=== PATIENT | female | born 1985 | race African-American/Black ===

== ENCOUNTER 2017-09-18 09:07 | Emergency (ER) | payer OTHER, BC ==
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
[2017-09-18] MEDS ORDERED: IBUPROFEN 800 MG TABLET PO ONE (12:57)
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
[2017-09-18 13:29] VITALS: BP 117/72
== END 2017-09-18 13:25 | disposition home or self-care (01) ==
LOC: ER 09:07
DX: M25.511 Pain in right shoulder (principal); M54.2 Cervicalgia; M54.6 Pain in thoracic spine; V49.60XA Unspecified car occupant injured in collision with unspecified motor vehicles in traffic accident, initial encounter
CPT/HCPCS: 99284; 73030; 72070; 70450; 72125; L0120

== ENCOUNTER 2019-04-01 20:53 | Inpatient (IN) | payer MEDICAID ==
[2019-04-01 21:39] LABS: APPEARANCE,URINE CLOUDY; BILIRUBIN,URINE NEGATIVE (NEGATIVE); COLOR,URINE YELLOW; GLUCOSE, URINE NEGATIVE (NEGATIVE); KETONES,URINE NEGATIVE (NEGATIVE); LEUKOCYTE ESTERASE,URINE NEGATIVE (NEGATIVE); NITRITE,URINE NEGATIVE (NEGATIVE); PROTEIN,URINE NEGATIVE (NEGATIVE); URINE SPECIFIC GRAVITY 1.024
[2019-04-01 21:58] LABS: ABSOLUTE LYMPHOCYTES (AUTO) 1.9 10^3/uL (0.5-4.7); ABSOLUTE MONOCYTES (AUTO) 0.8 10^3/uL (0.1-1.4); ABSOLUTE NEUT (AUTO) 4.4 10^3/uL (1.7-8.2); BASOPHILS % (AUTO) 0.4 % (0-2); EOSINOPHILS % (AUTO) 0.3 % (0-6); HEMOGLOBIN 11.4 g/dL (12.0-15.5); LYMPHOCYTES % (AUTO) 26.2 % (13-45); MEAN CORPUSCULAR HEMOGLOBIN 27.2 pg (27.0-33.4); MEAN CORPUSCULAR HGB CONC 33.5 g/dL (32.0-36.0); MEAN CORPUSCULAR VOLUME 81 fl (80-97); MONOCYTES % (AUTO) 11.4 % (3-13); PLATELET COUNT 225 10^3/uL (150-450); RED BLOOD COUNT 4.19 10^6/uL (3.72-5.28); RED CELL DISTRIBUTION WIDTH 16.3 % (11.5-14.0); SEGMENTED NEUTROPHILS % (AUTO) 61.7 % (42-78); TOTAL CELLS COUNTED % (AUTO) 100 %; WHITE BLOOD COUNT 7.1 10^3/uL (4.0-10.5)
[2019-04-01 21:59] LABS: URINE AMPHETAMINES SCREEN NEGATIVE; URINE BARBITURATES SCREEN NEGATIVE; URINE BENZODIAZEPINES SCREEN NEGATIVE; URINE COCAINE SCREEN NEGATIVE; URINE MARIJUANA (THC) SCREEN NEGATIVE; URINE METHADONE SCREEN NEGATIVE; URINE PHENCYCLIDINE SCREEN NEGATIVE
[2019-04-01] MEDS ORDERED: FENTANYL/BUPIVACAINE/NS/PF 300 MCG/150 ML RTUINJ EPI ONE (22:04)
[2019-04-01] MEDS ORDERED: BUPIVACAINE HCL 0.25 % INJ/PF (2.5 MG/1 ML) 30 ML VIAL ONE (22:04)
[2019-04-01] MEDS ORDERED: EPHEDRINE SULFATE INJ 50 MG/1 ML AMPULE ONE (22:04)
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
[2019-04-01] MEDS ORDERED: BENZOCAINE/MENTHOL AEROSOL SPRAY 56 ML TOP PRN (23:59)
[2019-04-01] MEDS ORDERED: GLYCERIN/WITCH HAZEL LEAF 1 EACH MED..WIPE TP PRN (23:59)
[2019-04-01] MEDS ORDERED: ACETAMINOPHEN WITH CODEINE #3 TABLET PO PRN (23:59)
[2019-04-01] MEDS ORDERED: PROMETHAZINE HCL 25 MG TABLET PO PRN (23:59)
[2019-04-01] MEDS ORDERED: ACETAMINOPHEN 650 MG SUPP.RECT PR PRN (23:59)
[2019-04-01] MEDS ORDERED: MAGNESIUM HYDROXIDE SUSP 30 ML UDCUP PO PRN (23:59)
[2019-04-01] MEDS ORDERED: MEASLES,MUMPS&RUBELLA VACC/PF 0.5 ML VIAL SUBCUT PRN (23:59)
[2019-04-01] MEDS ORDERED: DIPH/PERTUSS(ACELL)/TETANUS VAC/PF 0.5 ML SYR (>=10YO) IM PRN (23:59)
[2019-04-01] MEDS ORDERED: ZOLPIDEM TARTRATE 5 MG TABLET PO PRN (23:59)
[2019-04-01] MEDS ORDERED: DIBUCAINE 1% OINTMENT 56 GM TP PRN (23:59)
[2019-04-01] MEDS ORDERED: NA PHOS,M-B/NA PHOS,DI-BA (ADULT) 133 ML ENEMA PR PRN (23:59)
[2019-04-01] MEDS ORDERED: PROMETHAZINE HCL INJ 25 MG/1 ML VIAL IV PRN (23:59)
[2019-04-01] MEDS ORDERED: OXYTOCIN/NORMAL SALINE 20 UNIT/1,000 ML RTUINJ IV PRN (23:59)
[2019-04-01] MEDS ORDERED: PSEUDOEPHEDRINE HCL 30 MG TABLET PO PRN (23:59)
[2019-04-01] MEDS ORDERED: PROMETHAZINE HCL 25 MG SUPP.RECT PR PRN (23:59)
[2019-04-01] MEDS ORDERED: DIPHENHYDRAMINE HCL 25 MG CAPSULE PO PRN (23:59)
--- NOTE | 2019-04-02 00:16 | Warning Signs in Babies ---
VOD Warning Signs Datetime Report Generated by [facility]: 04/02/2019 00:16 VOD#608 -Warning Signs in Babies: Needs to be viewed. (04/01/2019 21:06:Isiah Alvarado RN)
--- NOTE | 2019-04-02 01:53 | Delivery Summary ---
Del Sum A-C Datetime Report Generated by CPN: 04/02/2019 01:53 DELIVERY PERSONNEL DELIVERY PERSONNEL: [id number] Delivery Doctor:: Areli Ortiz MD Labor and Delivery Nurse:: Isiah Alvarado RNphotographer assistant Nurse:: Silvina Chery RN Dope Dry House Operator/WELDING SUPERVISOR: Tami Green, ST MATERNAL INFORMATION Delivery Anesthesia: Epidural Medications After Delivery: Pitocin Drip 20 Units/1000ml NSS Meds After Delivery Comment: Pitocin 20 units in 1000 mL bolusing Estimated Blood Loss (ml): 200 Maternal Complications: None; Precipitous Labor (<3hrs) LABOR SUMMARY EDC: 03/31/2019 00:00 No. Babies in Womb: 1 Attempted: No Labor Anesthesia: Epidural LABOR INFORMATION Reason for Induction: Not Applicable Onset of Labor: 04/02/2019 21:11 Complete Dilatation: 04/02/2019 23:23 Oxytocin: N/A Group B Beta Strep: negative Antibiotics # of Doses: 0 Steroids Given: None Reason Steroids Not Administered: Not Applicable MEMBRANES Membranes Rupture Method: Artificial Rupture of Membranes: 04/02/2019 22:55 Length of Rupture (hr): -23.08 Amniotic Fluid Color: Clear (Annotations: slight blood tinged ) Amniotic Fluid Amount: Small Amniotic Fluid Odor: Normal STAGES OF LABOR Stage 1 hr: 2 Stage 1 min: 12 Stage 2 hr: -23 Stage 2 min: -33 Stage 3 hr: 24 Stage 3 min: 6 Total Time in Labor hr: 2 Total Time in Labor min: 45 VAGINAL DELIVERY Episiotomy: None Laceration #1: None Laceration Extension #1: N/A Laceration Repair: Not Applicable Sponge Count Correct: N/A Sharps Count Correct: N/A CSECTION DELIVERY Primary Indication: N/A Secondary Indication: N/A CSection Incidence: N/A Labor: N/A Elective: N/A CSection Incision: N/A BABY A INFORMATION Delivery Date/Time: 04/01/2019 23:50 Method of Delivery: Vaginal Born in Route : No : N/A Forceps: N/A Vacuum Extraction: N/A Shoulder Dystocia : No PRESENTATION/POSITION BABY A Presentation: Cephalic Cephalic Presentation: Vertex Vertex Position: Left Occipital Anterior Breech Presentation: N/A PLACENTA INFORMATION BABY A Placenta Delivery Time : 04/02/2019 23:56 Placenta Method of Delivery: Spontaneous Placenta Status: Delivered SCORES BABY A Heart Rate 1 min: >100 bpm Resp Effort 1 min: Good Cry Reflex Irritability 1 min: Cough or Sneeze or Pulls Away Muscle Tone 1 min: Active Motion Color 1 min: Blue/Pale Resuscitation Effort 1 min: Tactile Stimulation SCORE 1 MIN: 8 Heart Rate 5 min: >100 bpm Resp Effort 5 min: Good Cry Reflex Irritability 5 min: Cough or Sneeze or Pulls Away Muscle Tone 5 min: Active Motion Color 5 min: Blue/Pale Resuscitation Effort 5 min: Tactile Stimulation SCORE 5 MIN: 8 INFANT INFORMATION BABY A Gestational Age at Delivery: 40.0 Gestational Status: Full Term- 39- 40.6 Weeks Infant Outcome : Liveborn Infant Condition : Stable Sex: Female IDENTIFICATION BABY A Infant Verification Date/Time: 04/02/2019 00:00 ID Band Number: [id number] Mother's Name Verified: Yes RN Verifying Infant: Steve LEMUEL Pastrana and Angie Medeiros RN WEIGHT/LENGTH BABY A Infant Birthweight (gm): 3420 Weight (lb): 7 Infant Weight (oz): 9 Length (in): 19.50 Length (cm): 49.53 CORD INFORMATION BABY A No. Cord Vessels: 3 Nuchal Cord : N/A Cord Blood Taken: Yes-For Storage (Mom's Blood type +) Infant Suction: Mouth; Nose ASSESSMENT BABY A Complications: None Physical Findings at Delivery: Setswana Spots Respirations: Appears Normal Skin to Skin: Yes Skin to Skin Time (min): 20 Manager Clinic[facility] Called : No Care By: PatriciaIsrael Gabrielleyaquelin, RN BABY B INFORMATION : N/A SIGNATURES Signature: with User ID: [email or web address]
[2019-04-02] MEDS: FAMOTIDINE 20 MG TABLET PO SCH ×3 (03:41→21:08)
[2019-04-02] MEDS: IBUPROFEN 800 MG TABLET PO SCH ×3 (06:32→21:08)
[2019-04-02] MEDS: ACETAMINOPHEN WITH CODEINE #3 TABLET PO PRN ×2 (07:25→18:54)
[2019-04-02] MEDS: SENNOSIDES/DOCUSATE 8.6-50 MG 1 EACH TABLET PO SCH (10:28)
[2019-04-02] MEDS: FERROUS SULFATE 325 MG TABLET PO SCH ×2 (10:28→18:51)
[2019-04-02] MEDS: PRENATAL VITAMIN W DHA CAPSULE PO SCH (10:28)
[2019-04-02] MEDS: DOCUSATE SODIUM 100 MG CAPSULE PO SCH ×2 (10:28→18:51)
--- NOTE | 2019-04-02 11:19 | PDOC PROGRESS REPORT ---
Subjective-OB Progress Note for:: 04/02/19 Subjective: 34yo s/p ppd1. Pt ambulating and voiding without difficulty. Reports pain well controlled with medication, no concerns at this time. Physical Exam (OB) Vital Signs: Temp Pulse Resp BP Pulse Ox 97.8 F 67 16 105/66 100 04/02/19 07:16 04/02/19 07:16 04/02/19 07:16 04/02/19 07:16 04/02/19 07:16 Intake & Output 04/01/19 04/02/19 04/03/19 06:59 06:59 06:59 Weight 100.5 kg - General General Appearance: Appears well In distress: None - PIH/Pre-Eclampsia Headache: Absent Epigastric Pain: No Visual Changes: No - Episiotomy/Laceration Site Condition: N/A - Lochia Lochia Amount: Scant < 10 ml Lochia Color: Rubra/Red - Abdomen Description: Soft Hernia Present: No Fundal Description: Firm, Midline Fundal Height: u/u - u/2 - Respiratory Respiratory Status: No respiratory distress - Extremities Upper extremity: Normal inspection Lower extremities: Normal inspection - Neurological Cognition: Normal Orientation: AAOx4 - Psychological Associated symptoms: Normal affect, Normal mood Objective-Diagnostic Laboratory: 04/01/19 21:45 04/01/19 04/01/19 04/01/19 20:58 21:45 21:45 WBC 7.1 RBC 4.19 Hgb 11.4 L Hct 34.0 L MCV 81 MCH 27.2 MCHC 33.5 RDW 16.3 H Plt Count 225 Seg Neutrophils % 61.7 Lymphocytes % 26.2 Monocytes % 11.4 Eosinophils % 0.3 Basophils % 0.4 Absolute Neutrophils 4.4 Absolute Lymphocytes 1.9 Absolute Monocytes 0.8 Absolute Eosinophils 0.0 Absolute Basophils 0.0 Urine Color YELLOW Urine Appearance CLOUDY Urine pH 6.0 Ur Specific [place] 1.024 Urine Protein NEGATIVE Urine Glucose (UA) NEGATIVE Urine Ketones NEGATIVE Urine Blood MODERATE H Urine Nitrite NEGATIVE Ur Leukocyte Esterase NEGATIVE Blood Type B POSITIVE Antibody Screen NEGATIVE Assessment and Plan(PN) - Assessment and Plan (1) Delivery normal Is this a current diagnosis for this admission?: Yes Plan: routine pp care - Time Spent with Patient Time with patient: Less than 15 minutes Medications reviewed and adjusted accordingly: Yes - Disposition Anticipated Discharge: Home Within: within 24 hours
[2019-04-03 07:44] LABS: HEMATOCRIT 32.6 % (36.0-47.0); HEMOGLOBIN 10.7 g/dL (12.0-15.5); MEAN CORPUSCULAR HGB CONC 32.9 g/dL (32.0-36.0); MEAN CORPUSCULAR VOLUME 82 fl (80-97); PLATELET COUNT 201 10^3/uL (150-450); RED BLOOD COUNT 3.97 10^6/uL (3.72-5.28); RED CELL DISTRIBUTION WIDTH 16.8 % (11.5-14.0); WHITE BLOOD COUNT 7.5 10^3/uL (4.0-10.5)
[2019-04-03] MEDS: PRENATAL VITAMIN W DHA CAPSULE PO SCH (09:20)
[2019-04-03] MEDS: FERROUS SULFATE 325 MG TABLET PO SCH (09:20)
[2019-04-03] MEDS: FAMOTIDINE 20 MG TABLET PO SCH (09:20)
[2019-04-03] MEDS: DOCUSATE SODIUM 100 MG CAPSULE PO SCH (09:20)
[2019-04-03] MEDS: SENNOSIDES/DOCUSATE 8.6-50 MG 1 EACH TABLET PO SCH (09:20)
[2019-04-03] MEDS: IBUPROFEN 800 MG TABLET PO SCH (09:22)
[2019-04-03 09:35] VITALS: BP 114/57
--- NOTE | 2019-04-03 10:00 | PDOC DISCHARGE SUMMARY ---
Final Diagnosis Discharge Date: 04/03/19 - PP Day #2, doing well, Bottlefeeding, B+, rubella Immnue - Final Diagnosis (2) Delivery normal Is this a current diagnosis for this admission?: Yes Discharge Data - Discharge Medication Home Medications: Ibuprofen [Motrin 600 mg Tablet] 600 mg PO TID #30 tablet 09/18/17 Reason(s) for Admission: Onset of Labor Procedures: Ultrasound Intrapartum Procedure(s): Spontaneous Vaginal Delivery - Diagnosis Test Laboratory: Temp Pulse Resp BP Pulse Ox 97.8 F 72 18 114/57 L 99 04/03/19 07:29 04/03/19 07:29 04/03/19 07:29 04/03/19 07:29 04/03/19 07:29 04/01/19 04/01/19 04/03/19 20:58 21:45 07:10 RBC 4.19 3.97 Hgb 11.4 L 10.7 L Hct 34.0 L 32.6 L Urine Opiates Screen NEGATIVE - Discharge information/Instructions Discharge Activity: Activity As Tolerated, No Lifting Over 10 Pounds, Pelvic Rest Discharge Diet: As Tolerated, Regular Disposition: HOME, SELF-CARE Follow up with: [facility] in: 2 - Pt plans BTL, needs to schedule with MD at [facility]
== END 2019-04-03 15:17 | disposition home or self-care (01) | DRG 807 ==
LOC: LC 20:53 → LR 21:16 → 2S 04-02 02:11
PROVIDERS: ADMIT Obstetrics & Gynecology; ATTEND Obstetrics & Gynecology
PROC: 10E0XZZ Delivery of Products of Conception, External Approach (ICD-10-PCS; principal; 2019-04-01)
DX: O62.3 Precipitate labor (principal); Z37.0 Single live birth; Z3A.40 40 weeks gestation of pregnancy
CPT/HCPCS: 36415; 59025; 80307; 81005; 85025; 85027; 86592; 86850; 86900; 86901; J3010; J3490

== ENCOUNTER 2019-05-22 08:38 | Day surgery (SDC) | payer MEDICAID ==
[2019-05-21 11:45] LABS: APPEARANCE,URINE SLIGHTLY-CLOUDY; BILIRUBIN,URINE NEGATIVE (NEGATIVE); COLOR,URINE YELLOW; GLUCOSE, URINE NEGATIVE (NEGATIVE); KETONES,URINE NEGATIVE (NEGATIVE); LEUKOCYTE ESTERASE,URINE NEGATIVE (NEGATIVE); NITRITE,URINE NEGATIVE (NEGATIVE); PROTEIN,URINE NEGATIVE (NEGATIVE); URINE SPECIFIC GRAVITY 1.017
[2019-05-21 12:12] LABS: HEMATOCRIT 39.4 % (36.0-47.0); HEMOGLOBIN 13.1 g/dL (12.0-15.5); MEAN CORPUSCULAR HEMOGLOBIN 27.8 pg (27.0-33.4); MEAN CORPUSCULAR HGB CONC 33.4 g/dL (32.0-36.0); MEAN CORPUSCULAR VOLUME 83 fl (80-97); PLATELET COUNT 243 10^3/uL (150-450); RED BLOOD COUNT 4.72 10^6/uL (3.72-5.28); RED CELL DISTRIBUTION WIDTH 19.4 % (11.5-14.0); WHITE BLOOD COUNT 5.2 10^3/uL (4.0-10.5)
[~2019-05-22 08:38] MED LIST: LACTATED RINGERS 1000 ML IV PRN; LIDOCAINE 0.5% INJ-PF (5 MG/ML) 50 ML SDV SUBCUT PRN
[2019-05-22] MEDS ORDERED: SCOPOLAMINE HYDROBROMIDE 1.5 MG PATCH.TD72 TD PRN (09:28)
[2019-05-22] MEDS ORDERED: FAMOTIDINE INJ/PF 20 MG/2 ML SDV IV PRN (09:29)
[2019-05-22] MEDS ORDERED: MIDAZOLAM 2 MG/2 ML INJ IV PRN (09:29)
[2019-05-22] MEDS ORDERED: FAMOTIDINE INJ/PF 20 MG/2 ML SDV IV ONE (09:43)
[2019-05-22] MEDS ORDERED: MIDAZOLAM 2 MG/2 ML INJ ONE ×2 (09:43→09:59)
[2019-05-22] MEDS ORDERED: SCOPOLAMINE HYDROBROMIDE 1.5 MG PATCH.TD72 ONE (09:43)
[2019-05-22] MEDS ORDERED: FENTANYL CITRATE INJ/PF 100 MCG/2 ML AMPUL ONE (09:59)
[2019-05-22] MEDS ORDERED: HYDROMORPHONE HCL INJ/PF 2 MG/ML AMPULE ONE (10:00)
[2019-05-22] MEDS ORDERED: ONDANSETRON HCL INJ/PF 4 MG/2 ML SDV ONE (10:00)
[2019-05-22] MEDS ORDERED: PROPOFOL INJ 200 MG/20 ML VIAL IV ONE (10:00)
[2019-05-22] MEDS ORDERED: DEXAMETHASONE SOD PHOSPHATE INJ 4 MG/1 ML VIAL ONE (10:00)
[2019-05-22] MEDS ORDERED: FENTANYL CITRATE INJ/PF 100 MCG/2 ML AMPUL IV PRN ×3 (10:32)
[2019-05-22] MEDS ORDERED: PROMETHAZINE HCL INJ 25 MG/1 ML VIAL IV PRN (10:32)
[2019-05-22] MEDS ORDERED: DIPHENHYDRAMINE HCL 50 MG/ML VIAL IV PRN (10:32)
--- NOTE | 2019-05-22 11:27 | Operative Report ---
Operative Report DATE OF SURGERY: 05/22/19 PREOPERATIVE DIAGNOSIS: Undesired fertility POSTOPERATIVE DIAGNOSIS: Same OPERATION: Laparoscopic tubal cauterization SURGEON: JAVON CLARKE [employer] DEVELOPMENT DIRECTOR: ALDAIR BENNETT ANESTHESIA: GA TISSUE REMOVED OR ALTERED: Cauterization of bilateral fallopian tubes COMPLICATIONS: None ESTIMATED BLOOD LOSS: 20 cc INTRAOPERATIVE FINDINGS: Normal uterus tubes and ovaries PROCEDURE: Patient was taken the operating room prepared and draped in normal sterile fashion in dorsolithotomy position. Under sterile conditions and in and out cath was performed of approximately 100 cc of clear urine. Sterile speculum was placed into the vagina and a Hulka clamp was placed through the cervix for uterine manipulation without difficulty. The speculum was removed and gloves were changed and attention was turned to the upper portion of the case. A 5 mm incision was made at the umbilicus . using an OpSite procedure a 5 mm trocar was inserted at the umbilicus. The abdomen was inflated with approximately 2 L of CO2 gas. Was placed in Trendelenburg and the fallopian tubes were easily visualized with uterine manipulation. Another 5 mm port was placed in the left lower quadrant under direct visualization. starting with the left fallopian tube it was grasped with a Kleppinger and cauterized approximately 3-1/2 to 4 cm until occlusion was assured. The attention was then turned to the right fallopian tube and the right fallopian tube was cauterized in a similar fashion until complete occlusion was assured. Hemostasis was maintained. The lower trocar was removed under direct visualization without difficulty. The mother was then removed and the abdomen was deflated through the umbilical port. Sites were closed with 4-0 Vicryl skin. The clamp was removed at the end of the procedure. Tolerated procedure well sponge lap needle counts were correct x2 the patient was taken to PACU in stable condition.
[2019-05-22] MEDS ORDERED: SUCCINYLCHOLINE CHLORIDE INJ 200 MG/10 ML VIAL ONE (12:14)
[2019-05-22] MEDS ORDERED: METOCLOPRAMIDE HCL INJ/PF 10 MG/2 ML SDV ONE (12:35)
[2019-05-22 17:13] VITALS: BP 118/82
== END 2019-05-22 14:15 | disposition home or self-care (01) ==
LOC: OROUT 08:38
PROVIDERS: ATTEND Obstetrics & Gynecology
DX: Z30.2 Encounter for sterilization (principal); Z87.891 Personal history of nicotine dependence; Z79.899 Other long term (current) drug therapy
CPT/HCPCS: 86900; 86901; 36415 ×2; 86850; 85027; 81005; 81025; 58670; J2250; J1100; J3010; J3490; J2765; J1170; J0330; J2405; J2704; S0028; 851